=== PATIENT | female | born 1995 | race Caucasian/White ===

== ENCOUNTER 2024-05-01 05:39 | Emergency (ER) | payer SELFPAY ==
[2024-05-01] MEDS: diphenhydrAMINE 50 MG/ML SDV IVPUSH ONE (05:56)
[2024-05-01] MEDS: methylPREDNISolone Sodium Succinate 125 MG/2 ML SDV IVPUSH STA (05:57)
== END 2024-05-01 08:35 | disposition home or self-care (01) ==
LOC: CC.ED 05:39
DX: T78.3XXA Angioneurotic edema, initial encounter (principal); F17.290 Nicotine dependence, other tobacco product, uncomplicated; Z88.1 Allergy status to other antibiotic agents; Z79.899 Other long term (current) drug therapy
CPT/HCPCS: 96374; 96375; 99284; J1200; J2919

== ENCOUNTER 2024-07-06 16:45 | Emergency (ER) | payer MEDICAID | END 2024-07-06 17:25 | disposition home or self-care (01) | LOC: CC.ED 16:45 | DX: S61.451A Open bite of right hand, initial encounter (principal); Z88.1 Allergy status to other antibiotic agents; Z79.899 Other long term (current) drug therapy; W54.0XXA Bitten by dog, initial encounter | CPT/HCPCS: 99283 ==